=== PATIENT | female | born 1985 | race African-American/Black ===

== ENCOUNTER 2018-03-24 14:21 | Outpatient (CLI) | payer MEDICAID ==
[~2018-03-24] VITALS: Ht 165.1 cm; Wt 82.7 kg
[2018-03-24 14:10] VITALS: BP 130/77
[~2018-03-24 14:21] MED LIST: ALBU18HF INH; AZIT500T PO; PRED50TA PO
[2018-03-24] MEDS ORDERED: PREN1TAB60 PO (16:07)
== END 2018-03-24 16:21 | disposition home or self-care (01) ==
LOC: LDOP 14:21
PROVIDERS: ATTEND Obstetrics & Gynecology
DX: O26.893 Other specified pregnancy related conditions, third trimester (principal); R10.9 Unspecified abdominal pain; Z3A.39 39 weeks gestation of pregnancy
CPT/HCPCS: 59025; 99201; G0463

== ENCOUNTER 2018-03-24 22:02 | Inpatient (IN) | payer MEDICAID ==
[~2018-03-24] VITALS: Ht 165.1 cm; Wt 83.0 kg
[~2018-03-24 22:02] MED LIST changes: +PREN1TAB60 PO
[2018-03-24] MEDS ORDERED: LACTATED RINGERS 1,000 ML IV SCH ×2 (22:13→23:41)
[2018-03-24] MEDS ORDERED: OXYTOCIN 30U/ 0.9% NaCL 500ML 500 ML IV ONE (22:13)
[2018-03-24] MEDS ORDERED: D5%-LACTATED RINGERS 1,000 ML IV SCH (22:13)
[2018-03-24] MEDS ORDERED: LIDOCAINE/PF 1%, 30ML ONE (22:16)
[2018-03-24] MEDS ORDERED: NEWBORN KIT ONE (22:16)
[2018-03-24] MEDS ORDERED: OXYTOCIN 30U/ 0.9% NaCL 500ML 500 ML ONE (22:17)
[2018-03-24] MEDS ORDERED: MISOPROSTOL 200 MCG TABLET ONE (22:17)
[2018-03-24] MEDS ORDERED: METOCLOPRAMIDE 5 MG/ML, 2ML IVPush PRN (22:30)
[2018-03-24] MEDS ORDERED: CALCIUM CARBONATE 500 MG TAB.CHEW PO PRN (22:30)
[2018-03-24] MEDS ORDERED: FENTANYL PF 100 MCG/2ML IVPush PRN (22:30)
[2018-03-24] MEDS ORDERED: SODIUM CITRATE/CITRIC ACID 30 ML UDC PO PRN (22:30)
[2018-03-24] MEDS ORDERED: TERBUTALINE 1 MG/ML, 1ML SQ PRN (22:30)
[2018-03-24] MEDS ORDERED: ONDANSETRON 2MG/ML, 2ML IVPush PRN (22:30)
[2018-03-24 22:55] LABS: BASOPHILS # (AUTO) 0.01 x10^3/uL (0-0.1); BASOPHILS % (AUTO) 0 % (0-1); EOSINOPHILS # (AUTO) 0.05 x10^3/uL (0-0.4); EOSINOPHILS % (AUTO) 1 % (1-7); LYMPHOCYTES # (AUTO) 1.06 x10^3/uL (1-3.4); LYMPHOCYTES % (AUTO) 10 % (22-44); MD NO; MEAN CORPUSCULAR HEMOGLOBIN 28.4 pg (27.0-34.8); MEAN PLATELET VOLUME 8.3 fL (7.4-10.4); MONOCYTES % (AUTO) 7 % (2-9); NEUTROPHILS # (AUTO) 8.52 x10^3/uL (1.8-6.8); NEUTROPHILS % (AUTO) 82 % (42-75); PLATELET COUNT 259 x10^3/uL (130-400); RED BLOOD COUNT 3.25 x10^6/uL (3.82-5.3); RED CELL DISTRIBUTION WIDTH 15.9 % (9.6-15.2)
[2018-03-24 23:06] LABS: ALANINE AMINOTRANSFERASE 12 U/L (12-78); ALBUMIN 2.5 g/dL (3.4-5.0); ANION GAP 10 mmol/L (5-15); BILIRUBIN, DIRECT 0.1 mg/dL (0.1-0.2); CALCIUM 8.5 mg/dL (8.5-10.1); CHLORIDE 108 mmol/L (98-107); CREATININE 0.74 mg/dL (0.55-1.02)
[2018-03-24 23:08] LABS: ALKALINE PHOSPHATASE 173 U/L (45-117); BILIRUBIN,TOTAL 0.5 mg/dL (0.2-1.0); TOTAL PROTEIN 6.4 g/dL (6.4-8.2)
[2018-03-24] MEDS ORDERED: FENTANYL PF 100 MCG/2ML ONE (23:14)
[2018-03-24] MEDS ORDERED: BUPIVACAINE 0.25% ONE (23:15)
[2018-03-24] MEDS ORDERED: FENTANYL/BUPIV./NS/PF 250 ML EPIDCONT ONE (23:15)
[2018-03-24] MEDS ORDERED: FENTANYL/BUPIV./NS/PF 250 ML EPIDCONT SCH (23:41)
[2018-03-25] MEDS ORDERED: EPHEDRINE 50 MG/ML, 1ML IVPush PRN
[2018-03-25] MEDS ORDERED: ONDANSETRON 2MG/ML, 2ML IVPush PRN
[2018-03-25] MEDS ORDERED: LACTATED RINGERS 1,000 ML IVBOLUS PRN
[2018-03-25] MEDS: OXYTOCIN 30U/ 0.9% NaCL 500ML 500 ML IV SCH ×11 (02:58→14:26)
[2018-03-25] MEDS ORDERED: ONDANSETRON 2MG/ML, 2ML IV PRN (03:00)
[2018-03-25] MEDS ORDERED: METHYLERGONOVINE 0.2 MG/ML IM PRN (03:00)
[2018-03-25] MEDS ORDERED: OXYTOCIN 10 UNITS/ML, 1ML IM PRN (03:00)
[2018-03-25] MEDS ORDERED: OXYcodone IR 5MG TABLET PO PRN (03:00)
[2018-03-25] MEDS ORDERED: ACETAMINOPHEN 325 MG TABLET PO PRN (03:00)
[2018-03-25] MEDS ORDERED: CALCIUM CARBONATE 500 MG TAB.CHEW PO PRN (03:00)
[2018-03-25] MEDS ORDERED: RHOGAM FROM BLOOD BANK 1 NOTE EA IM/IV ONE (03:00)
[2018-03-25] MEDS ORDERED: OXYcodone/APAP 5/325MG TABLET PO PRN (03:00)
[2018-03-25] MEDS ORDERED: MAGNESIUM HYDROXIDE 8%, 30ML UDC PO PRN (03:00)
[2018-03-25 05:00] VITALS: BP 113/75
[2018-03-25 07:18] VITALS: BP 116/80
[2018-03-25 10:34] LABS: BASOPHILS # (AUTO) 0.01 x10^3/uL (0-0.1); BASOPHILS % (AUTO) 0 % (0-1); EOSINOPHILS % (AUTO) 1 % (1-7); LYMPHOCYTES # (AUTO) 0.86 x10^3/uL (1-3.4); LYMPHOCYTES % (AUTO) 9 % (22-44); MD NO; MEAN CORPUSCULAR HEMOGLOBIN 28.8 pg (27.0-34.8); MEAN CORPUSCULAR HGB CONC 33.4 g/dL (32.4-35.8); MEAN CORPUSCULAR VOLUME 86.2 fL (80-100); MEAN PLATELET VOLUME 8.3 fL (7.4-10.4); MONOCYTES % (AUTO) 7 % (2-9); NEUTROPHILS # (AUTO) 7.51 x10^3/uL (1.8-6.8); NEUTROPHILS % (AUTO) 83 % (42-75); PLATELET COUNT 246 x10^3/uL (130-400); RED BLOOD COUNT 3.03 x10^6/uL (3.82-5.3); RED CELL DISTRIBUTION WIDTH 15.8 % (9.6-15.2)
[2018-03-25] MEDS: PRENATAL VIT/IRON/FA 1 EACH TABLET PO SCH (13:36)
[2018-03-25] MEDS: IBUPROFEN 800 MG TABLET PO PRN ×2 (13:36→22:02)
[2018-03-25 13:40] VITALS: BP 118/79
[2018-03-25] MEDS: OXYcodone/APAP 5/325MG TABLET PO PRN ×2 (16:07→20:29)
[2018-03-25 16:10] VITALS: BP 122/82
[2018-03-25] MEDS ORDERED: DIPH,PERTUSS(ACELL),TET VAC/PF NC IM-VACC ONE ×2 (20:25→20:30)
[2018-03-25] MEDS: DOCUSATE 100 MG CAPSULE PO PRN (20:29)
[2018-03-25 20:30] VITALS: BP 118/78
[2018-03-26 00:50] VITALS: BP 119/74
[2018-03-26] MEDS ORDERED: FERR-46 PO (08:00)
[2018-03-26] MEDS ORDERED: IBUP-1222 PO (08:01)
[2018-03-26] MEDS ORDERED: OXYC-302 PO (08:01)
[2018-03-26] MEDS ORDERED: SENN1TAB7 PO (08:02)
[2018-03-26 08:50] VITALS: BP 123/84
[2018-03-26] MEDS: DOCUSATE 100 MG CAPSULE PO PRN (09:11)
[2018-03-26] MEDS: PRENATAL VIT/IRON/FA 1 EACH TABLET PO SCH (09:11)
[2018-03-26] MEDS: IBUPROFEN 800 MG TABLET PO PRN (09:11)
[2018-03-26] MEDS: OXYcodone/APAP 5/325MG TABLET PO PRN (09:11)
== END 2018-03-26 10:58 | disposition home or self-care (01) | DRG 775 ==
LOC: LDOP 22:02 → LDIP 22:20 → 2NW 03-25 04:43
PROVIDERS: ADMIT Obstetrics & Gynecology; ATTEND Obstetrics & Gynecology
PROC: 10E0XZZ Delivery of Products of Conception, External Approach (ICD-10-PCS; principal; 2018-03-25)
PROC: 00HU33Z Insertion of Infusion Device into Spinal Canal, Percutaneous Approach (ICD-10-PCS; 2018-03-25)
PROC: 3E0R3BZ Introduction of Anesthetic Agent into Spinal Canal, Percutaneous Approach (ICD-10-PCS; 2018-03-25)
DX: O76 Abnormality in fetal heart rate and rhythm complicating labor and delivery (principal); O99.314 Alcohol use complicating childbirth; O77.0 Labor and delivery complicated by meconium in amniotic fluid; R03.0 Elevated blood-pressure reading, without diagnosis of hypertension; O75.89 Other specified complications of labor and delivery; Z37.0 Single live birth; Z3A.39 39 weeks gestation of pregnancy; Z72.89 Other problems related to lifestyle; Z3A.49 Greater than 42 weeks gestation of pregnancy
CPT/HCPCS: 36415; 80053; 82248; 84550; 85025; 86850; 86870; 86900; 86922; 86923; 90715; J2590; J7120

== ENCOUNTER 2020-06-23 16:42 | Inpatient (IN) | payer MEDICAID ==
[~2020-06-23] VITALS: Ht 165.1 cm; Wt 84.1 kg
[~2020-06-23 16:42] MED LIST changes: +FERR-46 PO; +IBUP-1222 PO; +OXYC-302 PO; +SENN-177 PO
[2020-06-23] MEDS ORDERED: OMEP20TA62 PO (16:50)
[2020-06-23 16:52] VITALS: BP 140/78
[2020-06-23] MEDS: LACTATED RINGERS 1,000 ML IV SCH ×2 (18:12→19:59)
[2020-06-23] MEDS ORDERED: LACTATED RINGERS 1,000 ML IV SCH ×2 (18:26→20:21)
[2020-06-23] MEDS ORDERED: OXYTOCIN 30U/ 0.9% NaCL 500ML 500 ML IV PRN (18:26)
[2020-06-23] MEDS ORDERED: OXYTOCIN 30U/ 0.9% NaCL 500ML 500 ML IV ONE (18:26)
[2020-06-23] MEDS ORDERED: TERBUTALINE 1 MG/ML, 1ML SQ PRN (18:30)
[2020-06-23] MEDS ORDERED: FENTANYL PF 100 MCG/2ML IVPush PRN (18:30)
[2020-06-23] MEDS ORDERED: CALCIUM CARBONATE 500 MG TAB.CHEW PO PRN (18:30)
[2020-06-23] MEDS ORDERED: TERBUTALINE 1 MG/ML, 1ML IVPush PRN (18:30)
[2020-06-23] MEDS ORDERED: FENTANYL PF 100 MCG/2ML IV PRN (18:30)
[2020-06-23 18:49] LABS: BASOPHILS # (AUTO) 0.03 x10^3/uL (0-0.1); BASOPHILS % (AUTO) 0 % (0-1); EOSINOPHILS % (AUTO) 1 % (1-7); LYMPHOCYTES # (AUTO) 0.96 x10^3/uL (1-3.4); LYMPHOCYTES % (AUTO) 10 % (22-44); MD NO; MEAN CORPUSCULAR HEMOGLOBIN 28.4 pg (27.0-34.8); MEAN CORPUSCULAR HGB CONC 33.1 g/dL (32.4-35.8); MEAN CORPUSCULAR VOLUME 85.8 fL (80-100); MEAN PLATELET VOLUME 7.8 fL (7.4-10.4); MONOCYTES # (AUTO) 0.67 x10^3/uL (0.2-0.8); MONOCYTES % (AUTO) 7 % (2-9); NEUTROPHILS # (AUTO) 8.11 x10^3/uL (1.8-6.8); NEUTROPHILS % (AUTO) 82 % (42-75); PLATELET COUNT 276 x10^3/uL (130-400); RED BLOOD COUNT 3.49 x10^6/uL (3.82-5.3); RED CELL DISTRIBUTION WIDTH 16.8 % (9.6-15.2)
[2020-06-23] MEDS ORDERED: LIDOCAINE 1%, 20ML ONE (19:04)
[2020-06-23] MEDS ORDERED: NEWBORN KIT ONE (19:04)
[2020-06-23] MEDS ORDERED: MISOPROSTOL 200 MCG TABLET ONE (19:05)
[2020-06-23] MEDS ORDERED: OXYTOCIN 30U/ 0.9% NaCL 500ML 500 ML ONE (19:05)
[2020-06-23 20:00] VITALS: BP 129/83
[2020-06-23] MEDS ORDERED: BUPIVACAINE 0.25% ONE (20:03)
[2020-06-23] MEDS ORDERED: FENTANYL/BUPIV./NS/PF 250 ML EPIDCONT ONE (20:03)
[2020-06-23] MEDS ORDERED: FENTANYL/BUPIV./NS/PF 250 ML EPIDCONT SCH (20:21)
[2020-06-23] MEDS ORDERED: DIPHENHYDRAMINE 50 MG/ML, 1ML IVPush PRN (20:30)
[2020-06-23] MEDS ORDERED: NALOXONE 0.4 MG/ML, 1ML IVPush PRN (20:30)
[2020-06-23] MEDS ORDERED: LACTATED RINGERS 1,000 ML IVBOLUS PRN (20:30)
[2020-06-23] MEDS ORDERED: EPHEDRINE 50 MG/ML, 1ML IVPush PRN (20:30)
[2020-06-23] MEDS ORDERED: ONDANSETRON 2MG/ML, 2ML IVPush PRN (20:30)
[2020-06-23 21:22] LABS: AMPHETAMINE SCREEN, URINE Positive (Negative); BARBITURATE SCREEN, URINE Negative (Negative); BENZODIAZEPINE SCREEN, URINE Negative (Negative); CANNABINOID SCREEN, URINE Positive (Negative); COCAINE SCREEN, URINE Negative (Negative); METHADONE SCREEN, URINE Negative (Negative); OPIATE SCREEN, URINE Negative (Negative)
[2020-06-23] MEDS ORDERED: TERBUTALINE 1 MG/ML, 1ML ONE (21:32)
[2020-06-23] MEDS ORDERED: LACTATED RINGERS 1,000 ML INTUTE SCH (22:30)
[2020-06-23] MEDS ORDERED: LACTATED RINGERS 1,000 ML INTUTE PRN (22:30)
[2020-06-24] MEDS: LACTATED RINGERS 1,000 ML IV SCH ×3 (00:45→23:22)
[2020-06-24] MEDS: OXYTOCIN 30U/ 0.9% NaCL 500ML 500 ML IV SCH ×3 (02:59→22:59)
[2020-06-24] MEDS ORDERED: DIPH,PERTUSS(ACELL),TET VAC/PF NC IM-VACC PRN (03:00)
[2020-06-24] MEDS ORDERED: SIMETHICONE 80 MG CHEW TAB PO PRN (03:00)
[2020-06-24] MEDS ORDERED: MAGNESIUM HYDROXIDE 8%, 30ML UDC PO PRN (03:00)
[2020-06-24] MEDS ORDERED: BISACODYL 10 MG SUPP PR PRN (03:00)
[2020-06-24] MEDS ORDERED: RHOGAM FROM BLOOD BANK 1 NOTE EA IM/IV ONE (03:00)
[2020-06-24] MEDS ORDERED: ACETAMINOPHEN 325 MG TABLET PO PRN ×2 (03:00)
[2020-06-24] MEDS ORDERED: MEASLES,MUMPS&RUBELLA VACC/PF 0.5 ML SQ-VACC PRN (03:00)
[2020-06-24] MEDS ORDERED: CALCIUM CARBONATE 500 MG TAB.CHEW PO PRN (03:00)
[2020-06-24] MEDS ORDERED: ONDANSETRON 2MG/ML, 2ML IV PRN (03:00)
[2020-06-24] MEDS ORDERED: OXYTOCIN 30U/ 0.9% NaCL 500ML 500 ML ONE ×2 (03:03→03:07)
[2020-06-24 05:40] VITALS: BP 136/75
[2020-06-24 08:00] VITALS: BP 128/78
[2020-06-24] MEDS: DOCUSATE 100 MG CAPSULE PO PRN ×2 (08:49→19:14)
[2020-06-24] MEDS: PRENATAL VIT/IRON/FA 1 EACH TABLET PO SCH (08:50)
[2020-06-24 09:48] LABS: BASOPHILS # (AUTO) 0.02 x10^3/uL (0-0.1); BASOPHILS % (AUTO) 0 % (0-1); EOSINOPHILS # (AUTO) 0.17 x10^3/uL (0-0.4); EOSINOPHILS % (AUTO) 2 % (1-7); LYMPHOCYTES # (AUTO) 0.94 x10^3/uL (1-3.4); LYMPHOCYTES % (AUTO) 9 % (22-44); MD NO; MEAN CORPUSCULAR HEMOGLOBIN 28.5 pg (27.0-34.8); MEAN CORPUSCULAR HGB CONC 32.6 g/dL (32.4-35.8); MEAN CORPUSCULAR VOLUME 87.3 fL (80-100); MEAN PLATELET VOLUME 7.9 fL (7.4-10.4); MONOCYTES # (AUTO) 0.83 x10^3/uL (0.2-0.8); MONOCYTES % (AUTO) 8 % (2-9); NEUTROPHILS # (AUTO) 8.46 x10^3/uL (1.8-6.8); NEUTROPHILS % (AUTO) 81 % (42-75); PLATELET COUNT 223 x10^3/uL (130-400); RED BLOOD COUNT 3.29 x10^6/uL (3.82-5.3); RED CELL DISTRIBUTION WIDTH 16.5 % (9.6-15.2)
[2020-06-24] MEDS: IBUPROFEN 600 MG TABLET PO PRN ×2 (09:55→16:06)
[2020-06-24 12:00] VITALS: BP 112/80
[2020-06-24 16:00] VITALS: BP 116/80
[2020-06-24 19:05] VITALS: BP 125/82
[2020-06-25] VITALS: BP 111/76
[2020-06-25] MEDS: NICOTINE 14MG/24 HR PATCH.TD24 TD SCH
[2020-06-25] MEDS: IBUPROFEN 600 MG TABLET PO PRN ×3 (01:10→19:27)
[2020-06-25 03:48] VITALS: BP 122/81
[2020-06-25 07:05] VITALS: BP 124/81
[2020-06-25] MEDS: PRENATAL VIT/IRON/FA 1 EACH TABLET PO SCH (08:31)
[2020-06-25] MEDS: OXYTOCIN 30U/ 0.9% NaCL 500ML 500 ML IV SCH (18:59)
[2020-06-25] MEDS: DOCUSATE 100 MG CAPSULE PO PRN (19:27)
[2020-06-25 20:35] VITALS: BP 136/87
[2020-06-25] MEDS: LACTATED RINGERS 1,000 ML IV SCH (20:35)
[2020-06-26] MEDS: LACTATED RINGERS 1,000 ML IV SCH (02:30)
[2020-06-26] MEDS: OXYTOCIN 30U/ 0.9% NaCL 500ML 500 ML IV SCH (04:59)
[2020-06-26 07:40] VITALS: BP 129/86
[2020-06-26] MEDS: PRENATAL VIT/IRON/FA 1 EACH TABLET PO SCH (09:00)
[2020-06-26] MEDS: NICOTINE 14MG/24 HR PATCH.TD24 TD SCH (09:16)
[2020-06-26] MEDS ORDERED: IBUP-1222 PO (09:31)
== END 2020-06-26 09:30 | disposition home or self-care (01) | DRG 560 ==
LOC: LDOP 16:42 → LDIP 18:45 → 2NW 06-24 05:24 → EDSTATUS 06-24 16:40
PROVIDERS: ADMIT Obstetrics & Gynecology; ATTEND Obstetrics & Gynecology
PROC: 10E0XZZ Delivery of Products of Conception, External Approach (ICD-10-PCS; principal; 2020-06-24)
PROC: 10907ZC Drainage of Amniotic Fluid, Therapeutic from Products of Conception, Via Natural or Artificial Opening (ICD-10-PCS; 2020-06-24)
DX: O76 Abnormality in fetal heart rate and rhythm complicating labor and delivery (principal); O69.3XX0 Labor and delivery complicated by short cord, not applicable or unspecified; O90.81 Anemia of the puerperium; O99.324 Drug use complicating childbirth; O99.334 Smoking (tobacco) complicating childbirth; O99.52 Diseases of the respiratory system complicating childbirth; Z37.0 Single live birth; Z3A.40 40 weeks gestation of pregnancy; J45.909 Unspecified asthma, uncomplicated; F17.200 Nicotine dependence, unspecified, uncomplicated; F15.90 Other stimulant use, unspecified, uncomplicated; D64.9 Anemia, unspecified
CPT/HCPCS: 36415; 80307; 85025; 85461; 86592; 86850; 86900; 87635; 87806; G0378; J2790; G0475; J2590; J3010; J3105; J7120